=== PATIENT | male | born 1980 | race Caucasian/White ===

== ENCOUNTER 2023-10-01 08:39 | Outpatient (CLI) | payer OTHER ==
--- NOTE | 2023-10-01 13:08 | MRI Report ---
PROCEDURE: Knee RT WO INDICATIONS: RIGHT KNEE PAIN TECHNIQUE: Noncontrast sagittal PD fast spin echo and T2 fast spin echo with fat saturation, sagittal 3-D gradie nt sequence with fat saturation; coronal T1 spin echo and PD fast spin echo with fat saturation, and axial PD fast spin echo with fat saturation through the knee. COMPARISON: None. FINDINGS: Image quality: Excellent. Menisci: There is horizontal tear in the peripheral aspect of the posterior horn the medial meniscus (series 5 image 9). The lateral meniscus demonstrates normal morphology and internal signal. The men iscal root ligaments appear intact. Cruciate ligaments: The anterior and posterior cruciate ligaments appear intact. Medial structures: The medial collateral ligament appears intact. The semimembranosus tendon insert ions and meniscocapsular junction appear intact. Visualized portions of the pes anserinus tendons ap pear normal. No abnormal bursal fluid. Lateral structures: The lateral collateral ligament, long and short heads of the biceps femoris tend on appear intact. The popliteus tendon appears normal. Iliotibial band appears normal. Anterior structures: The quadriceps and patellar tendons appear intact. There is low-grade quadrice ps tendinitis and patellar tendinitis. Patellar alignment is normal. No femoral trochlear dysplasia or ventral trochlear prominence. No edema in the infrapatellar fat pad. Bones and cartilage: No bone marrow contusions or fractures. Mild cartilage signal inhomogeneity wit h preserved cartilage thickness. Joint space: There is trace knee joint effusion. There is a small Fierro's cyst. Normal appearing sy novial plicae are incidentally noted. IMPRESSION: 1. Horizontal tear of the posterior horn the medial meniscus. 2. Low-grade quadriceps tendinitis and patellar tendinitis. 3. A small Fierro's cyst. 4. Trace knee joint effusion. Reviewed by: Elaina Cox MD on 10/01/2023 1:06 PM PDT Approved by: Elaina Cox MD on 10/01/2023 1:06 PM PDT Station ID: [id number]
== END 2023-10-01 08:40 | disposition home or self-care (01) ==
LOC: DI 08:39
PROVIDERS: ATTEND General Practice
DX: S83.241A Other tear of medial meniscus, current injury, right knee, initial encounter (principal); M76.51 Patellar tendinitis, right knee; M76.891 Other specified enthesopathies of right lower limb, excluding foot; M25.461 Effusion, right knee; M71.21 Synovial cyst of popliteal space [Baker], right knee